=== PATIENT | female | born 2000 | race Caucasian/White ===

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

== ENCOUNTER 2022-09-17 03:24 | Emergency (ER) | payer MEDICAID, SELFPAY ==
[2022-09-17 03:25] VITALS: BP 133/63; PULSE 65; RESP 18; TEMP 36.8; O2SAT 99; BMI 30.5
--- NOTE | 2022-09-17 04:04 | CT_ITS ---
INDICATION: RLQ pain EXAMINATION: CT ABDOMEN AND PELVIS WITH CONTRAST - CT Abdomen And Pelvis W/ Contrast Injection TECHNIQUE: Helically acquired images were obtained of the abdomen and pelvis with sagittal and coronal reconstructed images. Individualized dose optimization techniques were used for this CT. IV contrast dosage and agent: 100 mL of Isovue 300. Oral contrast: None. COMPARISON: None. FINDINGS: VESSELS: No abdominal aortic aneurysm or dissection. LIVER: No evidence of a mass. No intrahepatic or extrahepatic biliary duct dilation. GALLBLADDER: No calcified stones. No evidence of cholecystitis. PANCREAS: No focal solid or cystic mass. No evidence of pancreatitis. SPLEEN: Normal. ADRENAL GLANDS: Normal. KIDNEYS AND URETERS: No urinary tract stone. No hydronephrosis or hydroureter. No perinephric stranding. URINARY BLADDER: Unremarkable. BOWEL: No evidence of diverticulosis or diverticulitis. Appendix not identified. No evidence of appendicitis. No evidence of bowel obstruction. REPRODUCTIVE ORGANS: IUD within the uterus. PERITONEUM: Small amount of cul-de-sac free fluid. No free air. LYMPH NODES: No pathologically enlarged mesenteric or retroperitoneal lymph nodes. ABDOMINAL WALL: No abdominal or pelvic wall hernia. BONES: No acute abnormality. LOWER CHEST: Visualized lung bases are clear. CT/Abdomen/Pelvis W IV Cont ONLY IMPRESSION: No acute abnormality. Electronically Signed: Ifeanyi Shaikh DO at 5:35 EDT ,
[2022-09-17] MEDS: Ondansetron 4 MG/2 ML Vial IV (04:30)
[2022-09-17] MEDS: 0.9% Normal Saline 1,000 ML 999 ML IV (04:30)
[2022-09-17] MEDS: Morphine 4 MG/ML Syringe IV (04:30)
[2022-09-17 04:44] LABS: Mucous, Urine 0 SEEN /hpf (<or=2+); Red Blood Cells-Urine 0 SEEN /hpf (0-5)
[2022-09-17 04:45] LABS: Color, Urine Yellow (Yellow); Glucose, Dipstick Normal (Normal); Ketone-Dipstick Negative (Negative); Leukocyte Esterase-Dipstick 100 /ul (Negative); Nitrite-Dipstick Negative (Negative); Occult Blood-Urine Negative /ul (Negative); Protein-Dipstick Negative (Negative); Urine Bilirubin Dipstick Negative (Negative); Urine Clarity Sl. Cloudy (Clear); Urine Urobilinogen Normal (Normal)
[2022-09-17 04:48] LABS: Absolute Lymphocyte Count 2.77 X10^3/uL (0.83-4.51); Absolute Neutrophil Count 4.6 X10^3/uL (2.0-7.7); Basophil# 0.05 X10^3/uL; Basophil% 0.5 % (0-1); Eosinophils% 15.5 % (0-5); Hematocrit 41.8 % (37-47); Hemoglobin 13.3 g/dL (12.0-15.0); Lymphocyte # 2.77 X10^3/ul (0.83-4.51); Lymphocyte % 28.6 % (19-41); Mean Corp Hgb Conc 31.8 g/dL (32-36); Mean Corpuscular Hgb 29.1 pg (27.0-32.0); Mean Corpuscular Volume 91.5 fL (81-99); Mean Platelet Vol. 11.6 fl (6.2-12.0); Monocyte# 0.71 X10^3/uL; Monocyte% 7.3 % (0-10); NRBC Flagged by Analyzer 0 % (0-5); Neutrophil # 4.64 X10^3/uL (2.7-7.7); Neutrophil % 47.8 % (47-70); POSITIVE COUNT YES; RBC Distribution Width CV 12.4 % (11.6-14.6); Red Blood Count 4.57 M/mm3 (4.2-5.4); White Blood Count 9.7 K/mm3 (4.4-11.0)
[2022-09-17 04:50] LABS: Differential Indicated SCAN CRITERIA MET
[2022-09-17 04:55] LABS: Amorphous Sediment 2+; Bacteria 2+ /hpf (None Seen); Squamous Epithelial Cells - UA 0-5 SEEN /hpf (5-10); White Blood Cells 0-5 SEEN /hpf (0-5)
[2022-09-17 04:56] LABS: Internal QC Validated? YES +Cl - CLEAR BKGD; Pregnancy, Serum, hCG Quali. NEGATIVE Negative
[2022-09-17 04:59] LABS: Anion Gap 3 (5-15); BUN 12 mg/dL (7-18); BUN/Creat Ratio 13.5 RATIO (10-20); Calcium,Total 8.9 mg/dL (8.5-10.1); Chloride 108 mmol/L (98-107); Creatinine, Serum 0.89 mg/dL (0.55-1.02); EST Glomerular Filtration Rate 86 mL/min (>60); Est Glom Filt Rate - Afr Amer 104 mL/min (>60); Estimated Creatinine Clearance 76.09 ml/min; Glucose 96 mg/dL (74-106); Potassium 3.8 mmol/L (3.5-5.1); Sodium Level 138 mmol/L (136-145)
[2022-09-17 05:04] LABS: Platelet Morphology CLUMPED
[2022-09-17 05:12] LABS: Lactic Acid 0.8 mmol/L (0.4-1.9)
[2022-09-17 07:06] VITALS: BP 138/77; PULSE 62; RESP 15; O2SAT 98
--- NOTE | 2022-09-17 07:09 | EDS_ITS ---
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 She denies any nausea vomiting diarrhea or dysuria. She denies any concern for . She states she took [id number] medication without any symptom improvement and secondary to this comes in for evaluation [facility] Medical History (Updated 09/17/22 @ 07:[address] Franklin Delcid, DO) Asthma Home Medications albuterol sulfate 90 mcg/actuation aerosol inhaler (Ventolin HFA) 1 - 2 puff inhalation Q4H PRN PRN Shortness Of Breath 04/05/14 [History Last Taken 05/24/16] cephalexin 500 mg capsule 500 mg PO TID 7 days #21 caps 09/17/22 [Rx Last Taken Unknown] Allergy/AdvReac Type Severity Reaction Status Date / Time azithromycin [From Zithromax] AdvReac Upset Verified 09/17/22 03:30 Stomach Surgical History no surgical history Social History Smoking Status: Never smoker ROS ROS ED Constitutional Constitutional ED: Denies chills or fever(s) ENT ENT ED: Denies sore throat Cardiovascular Cardiovascular: Denies chest pain Respiratory/Chest Respiratory/Chest: Denies cough or dyspnea Gastrointestinal Gastrointestinal: Reports abdominal pain; Denies diarrhea, nausea or vomiting Genitourinary Genitourinary ED: Denies dysuria or hematuria Musculoskeletal Musculoskeletal: Denies myalgias Integumentary Denies rash Neurologic Neurologic: Denies headache(s) Hematologic/Lymphatic Hematologic/Lymphatic: Denies easy bleeding or easy bruising EXAM Physical Exam Const Vital Signs: 09/17/22 03:25 09/17/22 07:06 Temperature 98.2 F Temperature Source Temporal Pulse Rate 65 62 Respiratory Rate 18 15 Blood Pressure 133/63 H 138/77 H Blood Pressure Mean 86 Pulse Ox 99 98 Oxygen Delivery Method Room Air Positive well nourished and well developed General Appearance ED: well developed HEENT Reports moist mucous membranes HEENT Narrative: No signs of infection in the posterior pharynx Eyes PERRL and EOMs intact bilaterally Neck supple Resp normal respiratory effort and clear to auscultation bilaterally Cardio regular rate and regular rhythm GI non-distended GI Narrative: Abdomen is soft and nondistended with normal active bowel sounds. Patient has pain with palpation in the suprapubic and right lower quadrant. There is i ncreased pain in the right lower quadrant compared to the suprapubic region and there is slight guarding in the right lower quadrant as well. Positive heel strike but negative psoas and obturator signs. No pulsatile mass Auscultation: normoactive bowel sounds Palpation: soft Back/Spine no CVA tenderness Extremity normal to inspection Neuro oriented x3 and CN's II-XII intact bilaterally Sensorium / Orientation: alert Psych mental status grossly normal Skin no rashes or lesions noted MDM MDM MDM Narrative Medical decision making narrative: Patient presented to the ER afebrile but had voluntary guarding in the right lower quadrant positive heel strike and therefore there is concern for acute appendicitis. Other differentials include ovarian torsion or ovarian cyst colitis urinary tract infection pyelonephritis or pelvic inflammatory disease. However as patient denies any vaginal discharge or concern for my concern for PID is low and do not believe there is need for a pelvic exam. Patient had basic blood work obtained which revealed no acute findings and a CT scan of abdomen pelvis revealed no signs of acute infection. There was also no mention of any type of ovarian cyst and without assist concern for torsion is very low as well. On reevaluation her right lower quadrant pain has improved there remains slight suprapubic pain. There is questionable infection in the urine but there is also contamination. At this time with negative CT scan but persistent suprapubic pain I will start the patient antibiotics with concern for developing UTI. However she does not have signs of urosepsis or acute kidney injury and therefore she can be discharged and follow-up on an outpatient basis. History & Record Review Discussion w/independent historian: Patient and Family Lab Data Attestation: I reviewed the patient's lab results. Labs: Laboratory Results - last 24 hr 09/17/22 09/17/22 09/17/22 04:30 04:30 04:30 WBC 9.7 RBC 4.57 Hgb 13.3 Hct 41.8 MCV 91.5 MCH 29.1 MCHC 31.8 L RDW Std Deviation 41.0 RDW Coeff of Marija 12.4 Plt Count TNP MPV 11.6 Immature Gran % (Auto) 0.300 Neut % (Auto) 47.8 Lymph % (Auto) 28.6 Colbert % (Auto) 7.3 Eos % (Auto) 15.5 H Baso % (Auto) 0.5 Absolute Neuts (auto) 4.6 Absolute Lymphs (auto) 2.77 Nucleated RBC % 0 Plt Morphology Comment CLUMPED Sodium 138 Potassium 3.8 Chloride 108 H Carbon Dioxide 27.0 Anion Gap 3 L BUN 12 Creatinine 0.89 Estim Creat Clear Calc 76.09 Est GFR (MDRD) Af Amer 104 Est GFR (MDRD) Non-Af 86 BUN/Creatinine Ratio 13.5 Glucose 96 Lactic Acid 0.8 Calcium 8.9 Serum , Qual Urine Color Urine Clarity Urine pH Ur Specific [place] Urine Protein Urine Glucose (UA) Urine Ketones Urine Occult Blood Urine Nitrite Urine Bilirubin Urine Urobilinogen Ur Leukocyte Esterase Urine RBC Urine WBC Ur Squamous Epith Cells Amorphous Sediment Urine Bacteria Urine Mucus 09/17/22 09/17/22 04:30 04:30 WBC RBC Hgb Hct MCV MCH MCHC RDW Std Deviation RDW Coeff of Marija Plt Count MPV Immature Gran % (Auto) Neut % (Auto) Lymph % (Auto) Colbert % (Auto) Eos % (Auto) Baso % (Auto) Absolute Neuts (auto) Absolute Lymphs (auto) Nucleated RBC % Plt Morphology Comment Sodium Potassium Chloride Carbon Dioxide Anion Gap BUN Creatinine Estim Creat Clear Calc Est GFR (MDRD) Af Amer Est GFR (MDRD) Non-Af BUN/Creatinine Ratio Glucose Lactic Acid Calcium Serum , Qual NEGATIVE Urine Color Yellow Urine Clarity Sl. Cloudy Urine pH 7.0 Ur Specific [place] 1.010 Urine Protein Negative Urine Glucose (UA) Normal Urine Ketones Negative Urine Occult Blood Negative Urine Nitrite Negative Urine Bilirubin Negative Urine Urobilinogen Normal Ur Leukocyte Esterase 100 H Urine RBC 0 SEEN Urine WBC 0-5 SEEN Ur Squamous Epith Cells 0-5 SEEN Amorphous Sediment 2+ Urine Bacteria 2+ Urine Mucus 0 SEEN Radiography Diagnostic Testing: Clinical Impression(s) from Imaging Studies Abdomen/Pelvis CT 09/17/22 04:04 IMPRESSION: No acute abnormality. Electronically Signed: Ifeanyi Shaikh DO at 5:35 EDT , Discharge Plan Triage Chief Complaint: Abd Pain ED Provider: Franklin Delcid Dx/Rx/DC Orders Clinical Impression: Nonspecific abdominal pain Instructions: ED Abdominal Pain Unkn Cause Fem Prescriptions: New cephalexin 500 mg capsule 500 mg PO TID 7 Days Qty: 21 0RF No Action albuterol sulfate [Ventolin HFA] 1 INHALER inhaler 1 - 2 puff inhalation Q4H PRN PRN (Reason: Shortness Of Breath) Primary Care Provider: Efraín Rodriguez Referrals: Efraín Rodriguez MD [Primary Care Provider] - Activity Restrictions/Additional Instructions: Your work-up today does not show any signs of kidney stone acute appendicitis or ovarian cyst. Your urine does have a small amount of bacteria in it which could be the cause of your symptoms. Therefore take antibiotic as directed and if the culture result is negative then you may stop treatment. If you have any further concerns please return for repeat evaluation Disposition Disposition: Home, Self Care Discharge Date/Time: 09/17/22 07:17
== END 2022-09-17 07:17 | disposition home or self-care (01) ==
PROVIDERS: Emergency Provider Emergency Medicine; PCP Pediatrics; Visit Provider Emergency Medicine
DX: R10.9 Unspecified abdominal pain (principal); J45.909 Unspecified asthma, uncomplicated; Z79.899 Other long term (current) drug therapy
CPT/HCPCS: 74177; 80048; 81001; 83605; 84703; 85025; 87086; 87088; 96374; 96375; 99282; J7030; Q9967; A4216; J2405